=== PATIENT | male | born 1935 | race Caucasian/White ===

== ENCOUNTER 2016-09-29 12:33 | Observation (INO) | payer MEDICARE ==
[~2016-09-29] VITALS: Ht 177.8 cm; Wt 79.5 kg
[2016-09-29 12:37] VITALS: BP 188/111; PULSE 91; RESP 20; TEMP 97; O2SAT 93
--- NOTE | 2016-09-29 13:03 | PD ---
HPI Chief Complaint: General Weakness Time Seen by Provider: 12:59 Travel History International Travel<30 days: No Contact w/Intl Traveler<30days: No Traveled to known affect area: No History of Present Illness HPI 81-year-old male presents to emergency department evaluation. Patient is accompanied by his grandson and both of them offer very vague, generalized complaints that have been ongoing for the last seen a half. Patient has not been feeling himself. Has had nausea, decreased appetite, weakness. He has had headaches and the grandson states that he has been holding his head frequently. He tells me he has a history of brain cancer and is followed by Dr. Araiza. He has had a tumor resection and undergoes chemotherapy every 2 weeks. He is due for chemotherapy this upcoming week. He is uncertain of any other definite medical history but states he is on many medications. Patient denies chest pain or tightness. He has had hematuria but no pain with urination. Uncertain of how long this has been going on. The grandson tells me that he is not his power of traffic law attorney. He states the patient has been deemed "incompetent" to make healthcare decisions however he states that the patient does not like the person who is in charge of his healthcare that is why the grandson is here. PFSH Past Medical History Medical History: Unable to Obtain Cancer: Yes Social History Tobacco Use: No Allergies-Medications Reported Meds & Prescriptions Reported Meds & Active Scripts Active Review of Systems ROS Limitations: Poor Historian Except as stated in HPI: all other systems reviewed are Neg Physical Exam Exam Limitations: Poor Historian Narrative GENERAL: Well-nourished male patient, lying in bed, in no acute distress. Patient at times is delayed in response and seems confused. SKIN: Warm and dry. HEAD: Atraumatic. Normocephalic. EYES: Pupils equal and round. No scleral icterus. No injection or drainage. ENT: No nasal bleeding or discharge. Mucous membranes pink and moist. NECK: Trachea midline. No JVD. CARDIOVASCULAR: Regular rate and rhythm. RESPIRATORY: No accessory muscle use. Diminished to auscultation. Breath sounds equal bilaterally. GASTROINTESTINAL: Abdomen soft, non-tender, nondistended. Hepatic and splenic margins not palpable. MUSCULOSKELETAL: No obvious deformities. No clubbing. No cyanosis. No edema. NEUROLOGICAL: Awake and alert. No obvious cranial nerve deficits. Motor grossly within normal limits. Normal speech. Data Data Last Documented VS Vital Signs Date Time Temp Pulse Resp B/P Pulse Ox O2 Delivery O2 Flow Rate FiO2 09/29/16 12:37 97.0 91 20 188/111 93 Room Air Orders Electrocardiogram (09/29/16 12:56) Complete Blood Count With Diff (09/29/16 12:56) Comprehensive Metabolic Panel (09/29/16 12:56) Prothrombin Time / Inr (Pt) (09/29/16 12:56) Act Partial Throm Time (Ptt) (09/29/16 12:56) Lactic Acid Sepsis Protocol (09/29/16 12:56) Lipase (09/29/16 12:56) Ckmb (Isoenzyme) Profile (09/29/16 12:56) Troponin I (09/29/16 12:56) Urinalysis - C+S If Indicated (09/29/16 12:56) Influenzae A/B Antigen (09/29/16 12:56) Blood Culture (09/29/16 12:56) Chest, Single Ap (09/29/16 12:56) Ct Brain W/O Iv Contrast(Rout) (09/29/16 ) MDM Medical Decision Making Medical Screen Exam Complete: Yes Emergency Medical Condition: Yes Medical Record Reviewed: Yes Differential Diagnosis Electrolyte abnormality versus sepsis versus intracranial etiology versus metastatic disease Narrative Course 81-year-old male presents to the emergency department for evaluation. Patient' s history of chemotherapy, increased confusion, and "not feeling right" CT imaging of the brain disorder as well as a sepsis workup. Workup was initiated in triage. Once a medical bed becomes available, patient will be transferred and care assumed by that provider Condition: Stable Shannon Yung Sep 29, 2016 13:03
--- NOTE | 2016-09-29 13:33 | RADRPT ---
EXAM DATE/TIME: 09/29/2016 13:11 [facility] COMPARISON: No previous studies available for comparison. INDICATIONS : Hematuria,headache weakness,slightly confused. RADIATION DOSE: 40.17 CTDIvol (mGy) MEDICAL HISTORY : Brain cancer SURGICAL HISTORY : Craniotomy. Tumor rescection ENCOUNTER: Initial ACUITY: 1 day PAIN SCALE: 0/10 LOCATION: cranial TECHNIQUE: Multiple contiguous axial images were obtained of the head. Using automated exposure control and adj ustment of the mA and/or kV according to patient size, radiation dose was kept as low as reasonably a chievable to obtain optimal diagnostic quality images. FINDINGS: CEREBRUM: The ventricles are normal for age. No evidence of midline shift, mass lesion, hemorrhage or acute in farction. No extra-axial fluid collections are seen. Mild encephalomalacia in the left temporal lobe POSTERIOR FOSSA: The cerebellum and brainstem are intact. The 4th ventricle is midline. The cerebellopontine angle i s unremarkable. EXTRACRANIAL: The visualized portion of the orbits is intact. SKULL: The calvaria is intact. No evidence of skull fracture. Remote left temporal parietal craniotomy CONCLUSION: No acute intracranial abnormality. Remote left temporoparietal craniotomy with encephal omalacia in the left temporal lobe. Bladimir Nguyen MD on September 29, 2016 at 13:30 Board Certified Radiologist. This report was verified electronically.
--- NOTE | 2016-09-29 13:56 | RADRPT ---
EXAM DATE/TIME: 09/29/2016 13:21 [facility] COMPARISON: No previous studies available for comparison. INDICATIONS : Altered mental status, short of breath. MEDICAL HISTORY : None. SURGICAL HISTORY : None. ENCOUNTER: Initial ACUITY: 1 day PAIN SCORE: 0/10 LOCATION: Bilateral chest FINDINGS: Mild vascular congestion and interstitial prominence. Likely mild basilar atelectasis and possible sm all effusions. Accounting for rotation, cardiac contours are grossly satisfactory. CONCLUSION: Symmetrically diminished aeration as above Jamey Rodriguez MD on September 29, 2016 at 13:48 Board Certified Radiologist. This report was verified electronically.
[2016-09-29 13:57] VITALS: BP 170/83; PULSE 68; RESP 14; O2SAT 98
[2016-09-29 13:58] LABS: AUTOMATED NEUTROPHIL # 8.1 TH/MM3 (1.8-7.7); BASOPHIL % 0.3 % (0.0-2.0); EOSINOPHIL % 0.4 % (0.0-4.0); HEMATOCRIT 44.2 % (39.0-51.0); HEMO FLAGS DIFF FINAL; LYMPH % 7.2 % (9.0-44.0); LYMPHOCYTE # 0.7 TH/MM3 (1.0-4.8); MEAN CELL VOLUME 95.1 FL (80.0-100.0); MEAN CORPUSCULAR HEMOGLOBIN 32.3 PG (27.0-34.0); MONO % 11.1 % (0.0-8.0); PLATELET COUNT 201 TH/MM3 (150-450); RED BLOOD COUNT 4.64 MIL/MM3 (4.50-5.90); RED CELL DISTRIBUTION WIDTH 14.4 % (11.6-17.2)
[2016-09-29 14:05] LABS: APTT (PATIENT) 29.7 SEC (24.3-30.1); INTERNATIONAL NORMALIZED RATIO 1.1 RATIO; PROTHROMBIN TIME - PATIENT 12.1 SEC (9.8-11.6)
[2016-09-29 14:12] LABS: AST (GOT) 37 U/L (15-37); BICARBONATE 26.6 MEQ/L (21.0-32.0); BLOOD UREA NITROGEN 23 MG/DL (7-18); CHLORIDE 99 MEQ/L (98-107); GLOMERULAR FILTRATION RATE 60 ML/MIN (>89); POTASSIUM 4.6 MEQ/L (3.5-5.1); SODIUM (NA) 134 MEQ/L (136-145)
[2016-09-29 14:13] LABS: ANION GAP 8 MEQ/L (5-15)
[2016-09-29 14:17] LABS: ALKALINE PHOSPHATASE 103 U/L (45-117); ALT (GPT) 38 U/L (12-78); CREATINE KINASE 165 U/L (39-308); TOTAL BILIRUBIN ADULT 0.9 MG/DL (0.2-1.0)
[2016-09-29 14:30] LABS: CKMB 7.2 NG/ML (0.5-3.6)
[2016-09-29] MEDS ORDERED: SODIUM CHLOR 0.9% 1000 ML INJ 1,000 ML IV ONE (14:30)
[2016-09-29] MEDS ORDERED: ACYC400T PO (14:59)
[2016-09-29] MEDS ORDERED: ALLO300T2 PO (14:59)
[2016-09-29] MEDS ORDERED: METO25TA3 PO (14:59)
[2016-09-29] MEDS ORDERED: LOVA20TA PO (14:59)
[2016-09-29] MEDS ORDERED: NIFE20 PO (14:59)
[2016-09-29] MEDS ORDERED: LEVE500 PO (14:59)
[2016-09-29 15:46] LABS: LACTIC ACID GHOST NOT REPORTABLE
--- NOTE | 2016-09-29 16:19 | PD ---
Data Data Last Documented VS Vital Signs Date Time Temp Pulse Resp B/P Pulse Ox O2 Delivery O2 Flow Rate FiO2 09/29/16 13:57 68 14 170/83 98 Room Air 09/29/16 12:37 97.0 Orders Electrocardiogram (09/29/16 12:56) Complete Blood Count With Diff (09/29/16 12:56) Comprehensive Metabolic Panel (09/29/16 12:56) Prothrombin Time / Inr (Pt) (09/29/16 12:56) Act Partial Throm Time (Ptt) (09/29/16 12:56) Lactic Acid Sepsis Protocol (09/29/16 12:56) Lipase (09/29/16 12:56) Ckmb (Isoenzyme) Profile (09/29/16 12:56) Troponin I (09/29/16 12:56) Urinalysis - C+S If Indicated (09/29/16 12:56) Influenzae A/B Antigen (09/29/16 12:56) Blood Culture (09/29/16 12:56) Chest, Single Ap (09/29/16 12:56) Ct Brain W/O Iv Contrast(Rout) (09/29/16 ) CKMB (09/29/16 13:30) CKMB% (09/29/16 13:30) Sodium Chlor 0.9% 1000 Ml Inj (Ns 1000 M (09/29/16 14:30) Labs Laboratory Tests Test 09/29/16 13:30 White Blood Count 10.0 TH/MM3 Red Blood Count 4.64 MIL/MM3 Hemoglobin 15.0 GM/DL Hematocrit 44.2 % Mean Corpuscular Volume 95.1 FL Mean Corpuscular Hemoglobin 32.3 PG Mean Corpuscular Hemoglobin 34.0 % Concent Red Cell Distribution Width 14.4 % Platelet Count 201 TH/MM3 Mean Platelet Volume 7.4 FL Neutrophils (%) (Auto) 81.0 % Lymphocytes (%) (Auto) 7.2 % Monocytes (%) (Auto) 11.1 % Eosinophils (%) (Auto) 0.4 % Basophils (%) (Auto) 0.3 % Neutrophils # (Auto) 8.1 TH/MM3 Lymphocytes # (Auto) 0.7 TH/MM3 Monocytes # (Auto) 1.1 TH/MM3 Eosinophils # (Auto) 0.0 TH/MM3 Basophils # (Auto) 0.0 TH/MM3 CBC Comment DIFF FINAL Differential Comment Prothrombin Time 12.1 SEC Prothromb Time International 1.1 RATIO Ratio Activated Partial 29.7 SEC Thromboplast Time Sodium Level 134 MEQ/L Potassium Level 4.6 MEQ/L Chloride Level 99 MEQ/L Carbon Dioxide Level 26.6 MEQ/L Anion Gap 8 MEQ/L Blood Urea Nitrogen 23 MG/DL Creatinine 1.17 MG/DL Estimat Glomerular Filtration 60 ML/MIN Rate Random Glucose 105 MG/DL Lactic Acid Level 2.2 mmol/L Calcium Level 8.6 MG/DL Total Bilirubin 0.9 MG/DL Aspartate Amino Transf 37 U/L (AST/SGOT) Alanine Aminotransferase 38 U/L (ALT/SGPT) Alkaline Phosphatase 103 U/L Total Creatine Kinase 165 U/L Creatine Kinase MB 7.2 NG/ML Troponin I 0.15 NG/ML Total Protein 6.0 GM/DL Albumin 2.7 GM/DL Lipase 92 U/L [facility] Supervised Visit with PATSY: Yes Narrative Course This patient's workup was initiated in triage and then sent back to the medical pod to await results I reviewed the previous providers report and workup and discussed with the patient and grandson at bedside. He had some vague nonspecific complaints and the doctor was worried about him being dehydrated and needing IV fluid I gave him 1 L normal saline IV His workup is essentially negative but unfortunately troponin was ordered and comes back elevated at 0.15 He has no priors to compare to He never had any chest symptoms However now that he has an elevated troponin which is not clinically suspicious for ACS I feel like he should be observed on telemetry with some serial troponins drawn as well as EKGs. I reviewed with Dr. Moran who will do this Diagnosis Primary Impression: Malaise Additional Impression: Elevated troponin I measurement Condition: Stable Oleg Rebolledo MD Sep 29, 2016 16:19
[2016-09-29 16:33] VITALS: BP 186/90; PULSE 86; RESP 13; O2SAT 98
[2016-09-29 17:49] LABS: BLOOD, URINE MOD (NEG); GLUCOSE,URINE NEG (NEG); HYALINE CAST, URINE 11 /lpf (RARE); KETONE, URINE TRACE mg/dL (NEG); MUCUS URINE FEW /lpf (OCC); NITRITE,URINE NEG (NEG); URINE COLOR YELLOW (YELLW/STRAW)
[2016-09-29 17:50] LABS: COMMENT (UR) CATH-CULT NOT IND; CULTURE IF INDICATED CATH CULTURE NOT IND
[2016-09-29] MEDS ORDERED: ASPIRIN EC 81 MG TABEC PO ONE (19:15)
[2016-09-29] MEDS ORDERED: SODIUM CHLORIDE 0.9% FLUSH 5 ML FLUSH IV PRN (19:15)
--- NOTE | 2016-09-29 19:23 | HHI.HP ---
HPI Service CP Hospitalists Primary Care Physician Roosevelt Jimenez MD Admission Diagnosis malaise, elevated troponin Chief Complaint: weakness Travel History International Travel<30 Days: No Contact w/Intl Traveler <30 Da: No Traveled to Known Affected Are: No History of Present Illness Pt is 81 yo male that I am seeing at request of ED physician for elevation of troponin. The pt is currently alone and confused. The chart says he was brought in by a grandson for weakness and not feeling himself. Pt has hx of "brain ca" and apparently gets chemo at another facility. He has no specific c/o on my arrival. denies any cp or sob. was given ivf in ED and had a CT brain neg for acute process. they did a set of ce's in ED and now abnormal. i was asked to see him. Review of Systems Other c/o beltre and weakness per report Past Family Social History Past Medical History "brain ca" resection and chemo htn hyperlipidemia Reported Medications Lovastatin 20 Mg Tab 20 Mg PO DAILY Metoprolol Tartrate 25 Mg Tab 25 Mg PO BID Acyclovir 400 Mg Tab 400 Mg PO BID Keppra (Levetiracetam) 500 Mg Tab 500 Mg PO BID Allopurinol 300 Mg Tab 300 Mg PO DAILY Nifedipine 20 Mg Cap 30 Mg PO DAILY Allergies: Coded Allergies: Formaldehyde (Verified Allergy, Unknown, 09/29/16) Garlic (Verified Allergy, Unknown, 09/29/16) Penicillin (Verified Allergy, Unknown, 09/29/16) Family History nc Social History no etoh/tob Physical Exam Vital Signs nad confused but cooperative heart reg lung cta abd s/nt ext no edema Vital Signs Date Time Temp Pulse Resp B/P Pulse Ox O2 Delivery O2 Flow Rate FiO2 09/29/16 16:33 86 13 186/90 98 Room Air 09/29/16 13:57 68 14 170/83 98 Room Air 09/29/16 12:37 97.0 91 20 188/111 93 Room Air Laboratory Laboratory Tests Test 09/29/16 09/29/16 13:30 17:20 White Blood Count 10.0 Red Blood Count 4.64 Hemoglobin 15.0 Hematocrit 44.2 Mean Corpuscular Volume 95.1 Mean Corpuscular Hemoglobin 32.3 Mean Corpuscular Hemoglobin 34.0 Concent Red Cell Distribution Width 14.4 Platelet Count 201 Mean Platelet Volume 7.4 Neutrophils (%) (Auto) 81.0 Lymphocytes (%) (Auto) 7.2 Monocytes (%) (Auto) 11.1 Eosinophils (%) (Auto) 0.4 Basophils (%) (Auto) 0.3 Neutrophils # (Auto) 8.1 Lymphocytes # (Auto) 0.7 Monocytes # (Auto) 1.1 Eosinophils # (Auto) 0.0 Basophils # (Auto) 0.0 CBC Comment DIFF FINAL Differential Comment Prothrombin Time 12.1 Prothromb Time International 1.1 Ratio Activated Partial 29.7 Thromboplast Time Sodium Level 134 Potassium Level 4.6 Chloride Level 99 Carbon Dioxide Level 26.6 Anion Gap 8 Blood Urea Nitrogen 23 Creatinine 1.17 Estimat Glomerular Filtration 60 Rate Random Glucose 105 Lactic Acid Level 2.2 1.4 Calcium Level 8.6 Total Bilirubin 0.9 Aspartate Amino Transf 37 (AST/SGOT) Alanine Aminotransferase 38 (ALT/SGPT) Alkaline Phosphatase 103 Total Creatine Kinase 165 Creatine Kinase MB 7.2 Troponin I 0.15 Total Protein 6.0 Albumin 2.7 Lipase 92 Urine Color YELLOW Urine Turbidity HAZY Urine pH 6.0 Urine Specific [place] 1.025 Urine Protein GREATER THAN 600 Urine Glucose (UA) NEG Urine Ketones TRACE Urine Occult Blood MOD Urine Nitrite NEG Urine Bilirubin NEG Urine Urobilinogen LESS THAN 2.0 Urine Leukocyte Esterase NEG Urine RBC 1 Urine WBC 2 Urine Hyaline Casts 11 Urine Mucus FEW Microscopic Urinalysis Comment CATH-CULT NOT IND Date/Time Procedure Status Source Growth 09/29/16 13:35 Aerobic Blood Culture Received Blood Peripheral Pending 09/29/16 13:35 Anaerobic Blood Culture Received Blood Peripheral Pending 09/29/16 13:30 Influenza Types A,B Antigen (CARMINE) - Final Complete Nasal Washing NEGATIVE FOR FLU A AND B ANTIGEN.... Result Diagram: 09/29/16 1330 09/29/16 1330 Assessment and Plan Problem List: (1) Elevated troponin Status: Acute Plan: pt is 81 yo man with reported hx of brain ca, resection and getting chemo. Brought to ED by grandson for "h/a, weakness, not acting himself: cardiac enzymes were elevated in ED and I was asked to admit for observaton cont tele and ce's overnight. will try to reach a family member in [place] and then decide on stress test if needed. PT eval home meds. his blood pressure is acutely elevated and we will give prn control and adjust home meds as needed. Anuel Moran MD Sep 29, 2016 19:23
[2016-09-29] MEDS ORDERED: ENALAPRILAT 1.25 MG/ML VIAL IV PUSH PRN (19:30)
[2016-09-29 19:41] VITALS: BP 178/109; PULSE 80; RESP 13; O2SAT 100
[2016-09-29 21:20] VITALS: BP 148/89; PULSE 75; RESP 18; O2SAT 93
--- NOTE | 2016-09-29 22:26 | EKG ---
Date Performed: 09/29/2016 Time Performed: 20:02:31 PTAGE: 81 years EKG: NORMAL Sinus rhythm MARKED LEFT AXIS DEVIATION LEFT BUNDLE BRANCH BLOCK DROPPED BEAT, POSSIBLE BLOCKED PAC ABNORMAL ECG PREVIOUS TRACING : 09/29/2016 13.55 Compared to prior tracing no significant change DOCTOR: Karson Mendez Interpretating Date/Time 09/29/2016 22:25:50
[2016-09-29] MEDS: SODIUM CHLORIDE 0.9% FLUSH 5 ML FLUSH IV SCH (22:42)
[2016-09-29] MEDS: ACYCLOVIR 200 MG CAP PO SCH (22:43)
[2016-09-29] MEDS: cloNIDine HCL 0.1 MG TAB PO PRN (22:43)
[2016-09-29] MEDS: METOPROLOL TARTRATE 25 MG TAB PO SCH (22:43)
[2016-09-29] MEDS: levETIRAcetam 500 MG TAB PO SCH (22:43)
[2016-09-29 23:00] VITALS: PULSE 84
--- NOTE | 2016-09-29 23:06 | EKG ---
Date Performed: 09/29/2016 Time Performed: 13:55:49 PTAGE: 81 years EKG: Sinus rhythm WITH FIRST DEGREE AV BLOCK LEFT BUNDLE BRANCH BLOCK ABNORMAL ECG PREVIOUS TRACING : 08/28/1997 12.39 Compared to the previous tracing, LBBB is new DOCTOR: Karson Mendez Interpretating Date/Time 09/29/2016 23:05:02
[2016-09-30 00:03] VITALS: BP 152/94; PULSE 94; RESP 18; TEMP 98.4; O2SAT 95
[2016-09-30 04:08] VITALS: BP 168/91; PULSE 79; RESP 18; TEMP 98.1; O2SAT 94
[2016-09-30] MEDS: cloNIDine HCL 0.1 MG TAB PO PRN (04:37)
[2016-09-30 08:15] VITALS: BP 168/81; PULSE 76; RESP 18; TEMP 97.3; O2SAT 98
[2016-09-30] MEDS ORDERED: NIFEdipine 30 MG SUSTAINED RELEASE TAB PO SCH (09:00)
[2016-09-30] MEDS ORDERED: PRAVASTATIN SOD 20 MG TAB PO SCH (09:00)
[2016-09-30] MEDS ORDERED: NIFEdipine 10 MG CAP PO SCH (09:00)
[2016-09-30] MEDS ORDERED: ASPIRIN EC 81 MG TABEC PO SCH (09:00)
[2016-09-30] MEDS ORDERED: ALLOPURINOL 300 MG TAB PO SCH (09:00)
[2016-09-30] MEDS: levETIRAcetam 500 MG TAB PO SCH (09:55)
[2016-09-30] MEDS: ACYCLOVIR 200 MG CAP PO SCH (09:55)
[2016-09-30] MEDS: METOPROLOL TARTRATE 25 MG TAB PO SCH (09:55)
[2016-09-30] MEDS: SODIUM CHLORIDE 0.9% FLUSH 5 ML FLUSH IV SCH (09:59)
[2016-09-30 10:00] VITALS: PULSE 65
--- NOTE | 2016-09-30 12:19 | HHI.FF ---
Face to Face Verification Diagnosis: (1) Dementia (2) Declining functional status (3) Glioblastoma Home Health Nursing Order: Medical education Nursing assessment with vital signs I have seen patient Josemanuel Crain on 09/30/16. My clinical findings support the need for the requested home health care services because: Med compliance is questionable Limited ability to care for self Impaired cognition/judgement I certify that my clinical findings support that this patient is homebound because: Impaired cognitive ability/safety Rosette Álvarez Sep 30, 2016 12:19
--- NOTE | 2016-09-30 13:56 | HHI.PR ---
Subjective Remarks Pt does not offer up any specific complaints at the time of examination. His son who is the POA and his grandson who lives with the patient. The pts family reports that the pt has been in a state of decline over the last year or so. Few days prior to admission the pt started not eating very well and may have had a low grade fever per the pts grandson The pt didn't eat much or drink much and pts family took him to see his PCP who recommended rehydration with IVF but they were unable to get into the infusion center so he was brought to the ED. 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 reoccurrence of his glioblastoma. Pts family is aware of these results. Pts workup in the ER indicated an elevated troponin but repeat labs were flat. He has not had any complaints chest pain, SOB or palpitations. Pt has no reported cardiac history. Workup here has been essentially negative. No evidence of infection, CXR is negative for any acute disease, Head CT was negative and labs were otherwise stable. Pts family is anxious to take him home. Objective Vitals Vital Signs Date Time Temp Pulse Resp B/P Pulse Ox O2 Delivery O2 Flow Rate FiO2 09/30/16 10:00 65 09/30/16 08:15 97.3 76 18 168/81 98 09/30/16 04:08 98.1 79 18 168/91 94 09/30/16 00:03 98.4 94 18 152/94 95 09/29/16 23:00 84 09/29/16 21:20 75 18 148/89 93 09/29/16 19:42 96 17 97 Room Air 09/29/16 19:41 80 13 178/109 100 Room Air 09/29/16 16:33 86 13 186/90 98 Room Air 09/29/16 13:57 68 14 170/83 98 Room Air Result Diagram: 09/29/16 1330 09/29/16 1330 Other Results Laboratory Tests Test 09/29/16 09/29/16 09/29/16 09/30/16 13:30 17:20 19:50 00:15 White Blood Count 10.0 TH/MM3 Red Blood Count 4.64 MIL/MM3 Hemoglobin 15.0 GM/DL Hematocrit 44.2 % Mean Corpuscular Volume 95.1 FL Mean Corpuscular Hemoglobin 32.3 PG Mean Corpuscular Hemoglobin 34.0 % Concent Red Cell Distribution Width 14.4 % Platelet Count 201 TH/MM3 Mean Platelet Volume 7.4 FL Neutrophils (%) (Auto) 81.0 % Lymphocytes (%) (Auto) 7.2 % Monocytes (%) (Auto) 11.1 % Eosinophils (%) (Auto) 0.4 % Basophils (%) (Auto) 0.3 % Neutrophils # (Auto) 8.1 TH/MM3 Lymphocytes # (Auto) 0.7 TH/MM3 Monocytes # (Auto) 1.1 TH/MM3 Eosinophils # (Auto) 0.0 TH/MM3 Basophils # (Auto) 0.0 TH/MM3 CBC Comment DIFF FINAL Differential Comment Prothrombin Time 12.1 SEC Prothromb Time International 1.1 RATIO Ratio Activated Partial 29.7 SEC Thromboplast Time Sodium Level 134 MEQ/L Potassium Level 4.6 MEQ/L Chloride Level 99 MEQ/L Carbon Dioxide Level 26.6 MEQ/L Anion Gap 8 MEQ/L Blood Urea Nitrogen 23 MG/DL Creatinine 1.17 MG/DL Estimat Glomerular Filtration 60 ML/MIN Rate Random Glucose 105 MG/DL Lactic Acid Level 2.2 mmol/L 1.4 mmol/L Calcium Level 8.6 MG/DL Total Bilirubin 0.9 MG/DL Aspartate Amino Transf 37 U/L (AST/SGOT) Alanine Aminotransferase 38 U/L (ALT/SGPT) Alkaline Phosphatase 103 U/L Total Creatine Kinase 165 U/L 181 U/L 167 U/L Creatine Kinase MB 7.2 NG/ML Troponin I 0.15 NG/ML 0.14 NG/ML 0.17 NG/ML Total Protein 6.0 GM/DL Albumin 2.7 GM/DL Lipase 92 U/L Urine Color YELLOW Urine Turbidity HAZY Urine pH 6.0 Urine Specific [place] 1.025 Urine Protein GREATER THAN 600 mg/dL Urine Glucose (UA) NEG mg/dL Urine Ketones TRACE mg/dL Urine Occult Blood MOD Urine Nitrite NEG Urine Bilirubin NEG Urine Urobilinogen LESS THAN 2.0 MG/DL Urine Leukocyte Esterase NEG Urine RBC 1 /hpf Urine WBC 2 /hpf Urine Hyaline Casts 11 /lpf Urine Mucus FEW /lpf Microscopic Urinalysis Comment CATH-CULT NOT IND Imaging Last Impressions Chest X-Ray 09/29/16 1256 Signed Impressions: Service Date/Time: Thursday, September 29, 2016 13:21 - CONCLUSION: Symmetrically diminished aeration as above Jamey Rodriguez MD Head CT 09/29/16 0000 Signed Impressions: Service Date/Time: Thursday, September 29, 2016 13:11 - CONCLUSION: No acute intracranial abnormality. Remote left temporoparietal craniotomy with encephalomalacia in the left temporal lobe. Bladimir Nguyen MD Objective Remarks General: NAD, AAOx3 Chest: CTA bilaterally Cardiac: Regular Abd: +BS, soft ND/NT Ext: No edema A/P Problem List: (1) Elevated troponin Status: Acute Plan: - The pt is 81 yo man with hx of glioblastoma s/p resection and getting chemo every [address] Araiza. - The pts family reports that the pt has been in a state of decline over the last year or so. - Few days prior to admission the pt started not eating very well and may have had a low grade fever per the pts grandson - The pt didn't eat much or drink much and pts family took him to see his PCP who recommended rehydration with IVF but they were unable to get into the infusion center so he was brought to the ED. 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 Pts family is aware of these results. -Pts workup in the ER indicated an elevated troponin but serial enzymes were flat. He has not had any complaints chest pain, SOB or palpitations. - Pt has no reported cardiac history. - Workup here has been essentially negative. No evidence of infection, CXR is negative for any acute disease, Head CT was negative and labs were otherwise stable. - Pts family is anxious to take him home. - PT eval indicated no need to for home PT - His home meds have been continued and BP is slightly elevated but he had not been taking his medications for a few days. - We will make arrangements for [facility] and will call [facility] to enroll the pt in complex case management. - Pt to be discharged home with family later today. - He will need to followup with his PCP, Dr. Jimenez and associates. (2) Dehydration Status: Acute Plan: - See above. (3) Glioblastoma Status: Chronic Plan: - See above. - Pt follows with Dr. Araiza and receives chemo [id number] - Pt also follows with Dr. Olvera from Neuro[facility] (4) Dementia Status: Chronic Plan: - See above. (5) Declining functional status Status: Chronic Plan: - See above. Assessment and Plan Patient examined. Assessment and plan formulated with Rosette Álvarez PA-C. I agree with the above. progressive cognitive decline. glioblastoma. gettting chemo. son confirms progressive decline. He doesn't want anything agressive no feeding tubes. 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 they will take him home. given ivf. family not interested in cardiac w/up. Rosette Álvarez Sep 30, 2016 13:56 Anuel Moran MD Sep 30, 2016 20:06
--- NOTE | 2016-09-30 19:44 | EKG ---
Date Performed: 09/30/2016 Time Performed: 01:18:56 PTAGE: 81 years EKG: Sinus rhythm WITH FIRST DEGREE AV BLOCK MARKED LEFT AXIS DEVIATION LEFT BUNDLE BRANCH BLOCK ABNORMAL ECG PREVIOUS TRACING : 09/29/2016 20.02 Compared to prior tracing no significant change DOCTOR: Karson Mendez Interpretating Date/Time 09/30/2016 19:43:00
== END 2016-09-30 15:02 | disposition home or self-care (01) ==
LOC: NEPA 12:33 → NEDA 16:20 → NEPGCP 20:39
PROVIDERS: ADMIT Hospitalist; ATTEND Hospitalist
DX: R53.81 Other malaise (principal); R53.1 Weakness; C71.9 Malignant neoplasm of brain, unspecified; R74.8 Abnormal levels of other serum enzymes; R51 Headache; R31.9 Hematuria, unspecified; R41.0 Disorientation, unspecified; I10 Essential (primary) hypertension; E78.5 Hyperlipidemia, unspecified; E86.0 Dehydration
CPT/HCPCS: 70450; 71010; 80053; 81001; 82550; 82552; 83605; 83690; 84484; 85025; 85610; 85730; 87040; 87804; 93005; 96360; 97162; 99285; G0378; G8987; G8988; J7030